=== PATIENT | female | born 1985 | race Hispanic/Latino ===

== ENCOUNTER 2025-02-26 20:51 | Emergency (ER) | payer SELFPAY ==
[2025-02-26] MEDS ORDERED: Acetaminophen 500 MG TAB ONE ×2 (21:47→21:52)
== END 2025-02-26 23:15 | disposition home or self-care (01) ==
LOC: NAV ERS 20:51
DX: S92.511A Displaced fracture of proximal phalanx of right lesser toe(s), initial encounter for closed fracture (principal); W22.09XA Striking against other stationary object, initial encounter
CPT/HCPCS: 99283